=== PATIENT | male | born 1955 | race Caucasian/White ===

== ENCOUNTER 2020-10-22 15:52 | Emergency (ER) | payer BC ==
[~2020-10-22] VITALS: Ht 180.3 cm; Wt 108.9 kg
[2020-10-22 16:42] LABS: BASO % 0.3 % (0.0-1.0); EOS # 0.1 10*3/uL (0.0-0.4); EOS % 1.5 % (1.0-4.0); HEMATOCRIT 46.1 % (42.0-52.0); LYMPH # 1.3 10*3/uL (1.3-4.4); LYMPH % 14.5 % (27.0-41.0); MEAN CELL VOLUME 85.5 fl (80.0-94.0); MEAN CORPUSCULAR HGB 27.8 pg (27.0-31.0); MEAN CORPUSCULAR HGB CONC 32.5 g/dl (33.0-37.0); MEAN PLATELET VOLUME 9.9 fl (9.6-12.3); MONO # 0.7 10*3/uL (0.1-1.0); MONO % 7.9 % (3.0-9.0); NEUT # 6.7 10*3/uL (2.3-7.9); NEUT % 75.5 % (47.0-73.0); PLATELET COUNT AUTOMATED 191 10*3/uL (130-400); RED BLOOD COUNT 5.39 10*6/uL (4.50-5.90); RED CELL DISTRI WIDTH 12.5 % (0-14.5); WHITE BLOOD COUNT 8.9 10*3/uL (4.8-10.8)
[2020-10-22 16:59] LABS: ALBUMIN 3.7 gm/dl (3.1-4.5); ALKALINE PHOSPHATASE 77 U/L (45-117); BUN 13 mg/dl (7-24); CHLORIDE 108 mmol/L (98-107); CREATININE 1.19 mg/dL (0.70-1.30); POTASSIUM 3.8 mmol/L (3.5-5.1); SGOT/AST 11 IU/L (3-35); SGPT/ALT 17 U/L (12-78); SODIUM 136 mmol/L (136-145); TOTAL PROTEIN 7.4 gm/dL (6.4-8.2)
[2020-10-22 18:23] LABS: BILIRUBIN Negative (Negative); BLOOD 3+ (Negative); CLARITY Clear (Clear); COLOR Yellow (Yellow); GLUCOSE Negative (Negative); KETONE 1+ (Negative); LEUKO ESTERASE Negative (Negative); NITRITE Negative (Negative); PH 5.5 (4.5-8.0); SPECIFIC GRAVITY 1.025 (1.001-1.030)
[2020-10-22 18:33] LABS: BACTERIA TRACE; MUCOUS 2+; RBC 41-50 rbc/hpf (0-2)
== END 2020-10-22 20:42 | disposition short-term general hospital (02) ==
LOC: ED 15:52
PROVIDERS: Physician Assistant
DX: N13.2 Hydronephrosis with renal and ureteral calculous obstruction (principal); Z87.442 Personal history of urinary calculi

== ENCOUNTER → 2020-11-16 | Outpatient (CLI) | payer BC ==
[2020-11-16 12:37] LABS: CHLORIDE 109 mmol/L (98-107); SODIUM 139 mmol/L (136-145)
[2020-11-16 12:55] LABS: ALBUMIN 3.9 gm/dl (3.1-4.5); ALKALINE PHOSPHATASE 85 U/L (45-117); BUN 16 mg/dl (7-24); CREATININE 0.86 mg/dL (0.70-1.30); SGOT/AST 19 IU/L (3-35); SGPT/ALT 21 U/L (12-78); T3 UPTAKE 32 % (31-39); THYROXINE (T4) TOTAL 7.8 ug/dl (4.5-12.1); TOTAL PROTEIN 7.4 gm/dL (6.4-8.2)
[2020-11-16 13:17] LABS: BILIRUBIN Negative (Negative); BLOOD Negative (Negative); CLARITY Clear (Clear); COLOR Yellow (Yellow); GLUCOSE Negative (Negative); KETONE Negative (Negative)
[2020-11-16 13:18] LABS: LEUKO ESTERASE Negative (Negative); NITRITE Negative (Negative); UROBILINOGEN 0.2 E.U./dl (0.0-1.0)
[2020-11-16 13:19] LABS: PTH INTACT 60.6 pg/mL (18.5-88.0)
[2020-11-16 13:33] LABS: BACTERIA TRACE; EPITHELIAL CELLS 0-2; MUCOUS 1+; RBC 0-2 rbc/hpf (0-2); WBC 0-2 wbc/hpf (0-5)
[2020-11-16 13:45] LABS: BASO % 0.5 % (0.0-1.0); EOS # 0.2 10*3/uL (0.0-0.4); EOS % 2.3 % (1.0-4.0); HEMATOCRIT 45.1 % (42.0-52.0); LYMPH # 2.6 10*3/uL (1.3-4.4); LYMPH % 33.3 % (27.0-41.0); MEAN CELL VOLUME 85.7 fl (80.0-94.0); MEAN CORPUSCULAR HGB 27.8 pg (27.0-31.0); MEAN CORPUSCULAR HGB CONC 32.4 g/dl (33.0-37.0); MONO # 0.5 10*3/uL (0.1-1.0); MONO % 6.6 % (3.0-9.0); NEUT # 4.5 10*3/uL (2.3-7.9); PLATELET COUNT AUTOMATED 291 10*3/uL (130-400); RED BLOOD COUNT 5.26 10*6/uL (4.50-5.90); RED CELL DISTRI WIDTH 12.4 % (0-14.5); WHITE BLOOD COUNT 7.9 10*3/uL (4.8-10.8)
== END | disposition home or self-care (01) ==
LOC: CT 11:00 → LAB 11:05
PROVIDERS: ATTEND Urology
DX: K40.20 Bilateral inguinal hernia, without obstruction or gangrene, not specified as recurrent (principal); N20.0 Calculus of kidney; R31.9 Hematuria, unspecified; I70.0 Atherosclerosis of aorta

== ENCOUNTER → 2020-11-18 | Outpatient (CLI) | payer BC ==
[2020-11-28 21:06] LABS: BUSHITE 1.28 ratio (0.00-3.00); CALCIUM OXALATE 3.95 ratio (0.00-6.00); CALCIUM, URINE 14.6 mg/dL (Not Estab.); CALCIUM, URINE 237.3 mg/24 hr (100.0-300.0); CITRIC ACID (CITRATE) 915 mg/24 hr (320-1240); CREATININE, URINE 161.1 mg/dL (Not Estab.); CREATININE, URINE 2617.9 mg/24 hr (1000.0-2000.0); MAGNESIUM, URINE 8.8 mg/dL (Not Estab.); MONOSODIUM URATE 5.62 ratio (0.00-4.00); OSMOLALITY, URINE 902 (300-900); SODIUM, URINE 156 mmol/L (Not Estab.); SODIUM, URINE 254 (58-337); STRUVITE 0.02 ratio (0.00-1.00); URIC ACID 2.91 ratio (0.00-1.20); pH 24 HR URINE 5.7 (.)
== END | disposition home or self-care (01) ==
LOC: LAB 08:30
PROVIDERS: ATTEND Urology
DX: N20.0 Calculus of kidney (principal); E83.50 Unspecified disorder of calcium metabolism; R31.9 Hematuria, unspecified; D40.0 Neoplasm of uncertain behavior of prostate; R53.83 Other fatigue